=== PATIENT | female | born 1955 | race Caucasian/White ===

== ENCOUNTER 2019-06-21 08:53 | Inpatient (IN) | payer OTHER ==
[~2019-06-21] VITALS: Ht 162.6 cm; Wt 31.8 kg
[~2019-06-21 08:53] MED LIST: ALBU90OI61 INH; AZIT500 PO; BENZ100A PO; BREO ELLIPTA 11 EACH IH; BREO ELLIPTA 21 EACH IH; CEFTIN PO; ELIPTA; FLUSAL2505 INH; NAPR220 PO; PRED10 PO; SACC250C PO; STIOLTO RESPIMAT4 GM IH; Ventolin Soln3 ML INH
[2019-06-21] MEDS ORDERED: PRED20 PO (09:07)
[2019-06-21] MEDS ORDERED: MONDOXYNE NL100 MG PO (09:07)
[2019-06-21] MEDS ORDERED: STIOLTO RESPIMAT4 GM INH (09:07)
[2019-06-21 09:13] LABS: BASOPHILS ABSOLUTE AUTO 0.02 K/mm3 (0.00-0.23); BASOPHILS PERCENT AUTO 0 % (0-2); EOSINOPHILS ABSOLUTE AUTO 0.03 K/mm3 (0.00-0.68); EOSINOPHILS PERCENT AUTO 0 % (0-6); Hematocrit 43.8 % (33.0-51.0); Hemoglobin 13.6 g/dL (11.5-16.0); IMMATURE GRAN ABSOLUTE AUTO 0.04 K/mm3 (0.00-0.10); IMMATURE GRAN PERCENT AUTO 0 % (0-1); LYMPHOCYTES ABSOLUTE AUTO 1.01 K/mm3 (0.84-5.20); LYMPHOCYTES PERCENT AUTO 9 % (21-46); MONOCYTES ABSOLUTE AUTO 0.52 K/mm3 (0.16-1.47); MONOCYTES PERCENT AUTO 5 % (4-13); Mean Corpuscular HGB 31.8 pg (26.0-34.0); Mean Corpuscular HGB Conc 31.1 g/dL (31.5-36.5); Mean Corpuscular Volume 102 fL (80-100); Mean Platelet Volume 9.6 fL (9.1-12.4); NEUTROPHILS ABSOLUTE AUTO 9.23 K/mm3 (1.96-9.15); NEUTROPHILS PERCENT AUTO 85 % (41-73); Platelet Count 263 K/mm3 (150-400); RDW Coefficient Variation 14.5 % (11.7-14.2); RDW Standard Deviation 54.9 fL (35.1-46.3); Red Blood Cell Count 4.28 M/mm3 (3.80-5.20); White Blood Cell Count 10.85 K/mm3 (4.00-11.30)
[2019-06-21 09:31] LABS: Anion Gap 2 mmol/L (6-16); Blood Urea Nitrogen 20 mg/dL (8-24); Bun/Creatinine Ratio 35.1 (12.0-20.0); CO2, Blood 34 mmol/L (21-32); Calcium, Blood 8.5 mg/dL (8.5-10.1); Chloride, Blood 104 mmol/L (98-108); Creatinine, Blood 0.57 mg/dL (0.40-1.00); Glomerular Filtration Rate >60 (60-); Glucose, Blood 167 mg/dL (70-99); Potassium, Blood 3.8 mmol/L (3.5-5.5); Sodium, Blood 140 mmol/L (136-145)
[2019-06-21] MEDS ORDERED: Flovent 110 MCG12 GM INH (11:38)
--- NOTE | 2019-06-21 14:11 | NUR ---
PERMISSION TO PROVIDE CARE BHUPENDRA Randle, A STUDENT NURSE RECEIVED PERMISSION TO PROVIIDE CARE TO THIS PATIENT ON 06-22-2019 FROM THE CHARGE NURSE ON PCU
--- NOTE | 2019-06-21 18:41 | NUR ---
SUMMARY PT ADMITTED TO THE FLOOR FROM THE ER, SHE IS ON 2 L O2 VIA NC WHICH IS HER BASELINE, O2 SATS >95%. LUNGS ARE DIMINISHED THROUGH OUT W/WHEEZES,LABORED,TACHY. PRN & SCHEDULED BREATHING TREATMENTS HAVE BEEN ORDERED. PT IS A STAND BY ASSIST TO THE BSC. NS @75 ML/HR INFUSING. PT ENC TO CALL FOR ASSISTANCE PRIOR TO GETTING OOB. CALL LIGHT IN REACH, WCELIZABETH & REPORT TO CLYDE PENA.
[2019-06-22 04:20] LABS: BASOPHILS ABSOLUTE AUTO 0.01 K/mm3 (0.00-0.23); BASOPHILS PERCENT AUTO 0 % (0-2); EOSINOPHILS PERCENT AUTO 0 % (0-6); Hematocrit 39.3 % (33.0-51.0); Hemoglobin 12.5 g/dL (11.5-16.0); IMMATURE GRAN ABSOLUTE AUTO 0.02 K/mm3 (0.00-0.10); IMMATURE GRAN PERCENT AUTO 0 % (0-1); LYMPHOCYTES ABSOLUTE AUTO 0.47 K/mm3 (0.84-5.20); LYMPHOCYTES PERCENT AUTO 10 % (21-46); MONOCYTES PERCENT AUTO 4 % (4-13); Mean Corpuscular HGB 31.8 pg (26.0-34.0); Mean Corpuscular HGB Conc 31.8 g/dL (31.5-36.5); Mean Corpuscular Volume 100 fL (80-100); Mean Platelet Volume 9.7 fL (9.1-12.4); NEUTROPHILS ABSOLUTE AUTO 3.88 K/mm3 (1.96-9.15); NEUTROPHILS PERCENT AUTO 85 % (41-73); Platelet Count 240 K/mm3 (150-400); RDW Coefficient Variation 14.4 % (11.7-14.2); RDW Standard Deviation 53.2 fL (35.1-46.3); Red Blood Cell Count 3.93 M/mm3 (3.80-5.20); White Blood Cell Count 4.58 K/mm3 (4.00-11.30)
[2019-06-22 04:43] LABS: Anion Gap 4 mmol/L (6-16); Blood Urea Nitrogen 16 mg/dL (8-24); Bun/Creatinine Ratio 28.1 (12.0-20.0); CO2, Blood 31 mmol/L (21-32); Calcium, Blood 8.3 mg/dL (8.5-10.1); Chloride, Blood 107 mmol/L (98-108); Creatinine, Blood 0.57 mg/dL (0.40-1.00); Glomerular Filtration Rate >60 (60-); Glucose, Blood 119 mg/dL (70-99); Potassium, Blood 4.1 mmol/L (3.5-5.5); Sodium, Blood 142 mmol/L (136-145)
--- NOTE | 2019-06-22 06:38 | NUR ---
CIVIL DIVISION COMMANDER DEPUTY SHERIFF SUMMARY NO ACUTE CHANGES THIS SHIFT. PT AAOX4 AND PLEASANT. CALLS APPROPRIATELY FOR ASSISTANCE. CONTINUES ON 2L O2 VIA NC WHICH IS HOME DOSE. IV SOLUMEDROL Q6. PT REPORTS IMPROVEMENT IN BREATHING. STILL WHEEZY T/O. VSS, WILL CONTINUE TO MONITOR.
--- NOTE | 2019-06-22 07:21 | NUR ---
ASSUMED PATIENT CARE. PATIENT RECIEVING RESPIRATORY TREATMENT WITH RT AT BEDSIDE. PATIENT ENDORSES THAT THE RESPIRATORY TREATMENTS ARE HELPING. NO SIGNS OF ACUTE DISTRESS. WCTM.
--- NOTE | 2019-06-22 18:45 | NUR ---
NO ACUTE EVENTS THIS SHIFT. DECREASED WORK OF BREATHING THROUGH THIS SHIFT. DECREASED SEVERITY OF WHEEZES NOTED BY THIS RN COMPARED TO LUNG SOUNDS AT START OF SHIFT. PATIENT EXPRESSED FEELING LIKE HER "BREATHING IS GETTING BETTER." PATIENT MAINTAINED O2 SATURATION IN THE HIGH 90S THIS SHIFT ON 2-2.5 L BY NASAL CANNULA.
--- NOTE | 2019-06-22 19:31 | NUR ---
RELINQUISHED PATIENT CARE.
--- NOTE | 2019-06-22 21:00 | NUR ---
PATIENT RESTING IN BED, SOB WITH SLIGHT ACTIVITY. ON 2L/NC WITH BIOX 93-95% LUNG SOUNDS WHEEZES T/O, AND DIFFICULT TO TAKE DEEP BREATH. PATIENT UP TO BSC WITHOUT DIFFICULTY. PATIENT FLORENTIN PO WITHOUT DIFFICULTY.
[2019-06-23 04:03] LABS: Base Excess Venous 10.4 mmol/L; Bicarbonate Venous 32.7 mmol/L (24.0-30.0); PO2 Venous 126 mmHg (38-42); pH Blood Venous 7.45 (7.34-7.37)
[2019-06-23 04:10] LABS: BASOPHILS ABSOLUTE AUTO 0.01 K/mm3 (0.00-0.23); BASOPHILS PERCENT AUTO 0 % (0-2); EOSINOPHILS PERCENT AUTO 0 % (0-6); Hematocrit 38.2 % (33.0-51.0); Hemoglobin 12.1 g/dL (11.5-16.0); IMMATURE GRAN ABSOLUTE AUTO 0.02 K/mm3 (0.00-0.10); IMMATURE GRAN PERCENT AUTO 0 % (0-1); LYMPHOCYTES ABSOLUTE AUTO 0.55 K/mm3 (0.84-5.20); LYMPHOCYTES PERCENT AUTO 8 % (21-46); MONOCYTES ABSOLUTE AUTO 0.28 K/mm3 (0.16-1.47); MONOCYTES PERCENT AUTO 4 % (4-13); Mean Corpuscular HGB 31.6 pg (26.0-34.0); Mean Corpuscular HGB Conc 31.7 g/dL (31.5-36.5); Mean Corpuscular Volume 100 fL (80-100); Mean Platelet Volume 9.5 fL (9.1-12.4); NEUTROPHILS ABSOLUTE AUTO 6.45 K/mm3 (1.96-9.15); NEUTROPHILS PERCENT AUTO 88 % (41-73); Platelet Count 233 K/mm3 (150-400); RDW Coefficient Variation 14.2 % (11.7-14.2); RDW Standard Deviation 52.4 fL (35.1-46.3); Red Blood Cell Count 3.83 M/mm3 (3.80-5.20); White Blood Cell Count 7.31 K/mm3 (4.00-11.30)
[2019-06-23 04:37] LABS: Anion Gap 1 mmol/L (6-16); Blood Urea Nitrogen 16 mg/dL (8-24); Bun/Creatinine Ratio 30.4 (12.0-20.0); CO2, Blood 34 mmol/L (21-32); Calcium, Blood 8.4 mg/dL (8.5-10.1); Chloride, Blood 106 mmol/L (98-108); Creatinine, Blood 0.53 mg/dL (0.40-1.00); Glomerular Filtration Rate >60 (60-); Glucose, Blood 121 mg/dL (70-99); Potassium, Blood 4.2 mmol/L (3.5-5.5); Sodium, Blood 141 mmol/L (136-145)
--- NOTE | 2019-06-23 06:44 | NUR ---
SUMMARY PATIENT SLEEPING OFF AND ON T/O NIGHT. LUNG SOUNDS REMAIN DECREASED WITH WHEEZES T/O. SOB WITH ACTIVITY, BUT IS ABLE TO TRANSFER SELF TO BSC WITHOUT DIFFICULTY. PATIENT VERBALIZED THAT SHE IS FEELING BETTER THIS MORNING AND IS WANTING TO TRY TO TAKE A SHOWER TODAY.
--- NOTE | 2019-06-23 07:22 | NUR ---
ASSUMED PATIENT CARE. PATIENT RESTING COMFORTABLY IN BED, COMVERSING WITH NURSING STAFF. NO SIGNS OF ACUTE RESPIRATORY DISTRESS, WCTM.
--- NOTE | 2019-06-23 19:43 | NUR ---
TRANSFER NOTE HANDOFF RECEIVED FROM PCU NURSE MAURIZIO. PT TRANSFERED TO MED FLOOR VIA WHEELCHAIR. PERSONAL POSSESSIONS BROUGHT WITH PT. PT ORIENTED TO UNIT. CALL BUTTON WITHIN REACH.
--- NOTE | 2019-06-24 05:31 | NUR ---
SHIFT SUMMARY ADMITTED FOR RESPIRATORY FAILURE. FOUND TO HAVE COPD EXACERBATION. DNR CODE. ORAL PREDNISONE AND ZITHROMAX IS IN EMAR. RT TX'S ARE SCHEDULED. I DID CALL NIGHT HOSPITALIST FOR JOS[facility] MANUEL KISER TID PRN THIS SHIFT DUE TO HER SEVERE COUGHING SPELLS. SHE IS ON A REGULAR DIET, A&O X4, AND ON 2 LPM O2 WHICH IS HER BASELINE AT HOME. SHE LIVES WITH HER , AND SHE IS A CURRENT SMOKER. STANDBY ASSIST TO BATHROOM DUE TO SEVERE DYSPNEA. HX: COPD, MALNUTRITION, GERD. QUANTIFERON GOLD TEST RESULTS ARE PENDING (RE:LATENT TB).
--- NOTE | 2019-06-24 19:15 | NUR ---
RECEIVED BEDSIDE REPORT FROM BECKY GRIFFIN. PT SITTING UP IN BED. RESP SHALLOW ON 2L VIA NC, 2L IS PT'S BASELINE AT HOME. NOTED SOB AT REST. PT STATES SHE'S MUCH BETTER THAN WHEN SHE CAME IN AND IS HOPING TO BE DISCHARGED IN THE MORNING. WILL MONITOR AND PROVIDE CARE T/O SHIFT. CALL LT IN REACH.
--- NOTE | 2019-06-24 21:28 | NUR ---
PT RESTING QUIETLY AT THIS TIME. CALL LT IN REACH.
--- NOTE | 2019-06-24 22:10 | NUR ---
PT DENIES ANY NEEDS. CALL LT IN REACH.
--- NOTE | 2019-06-25 04:14 | NUR ---
SHIFT SUMMMARY: PT CONTINUES TO BE SOB, HOWEVER, IS AT BASELINE FOR OXYGEN NEEDS AT 2L VIA NC. NO COMPLAINTS OF PAIN, OR NAUSEA. REPORTED NO SPUTUM DURING SHIFT. COUGHED VERY LITTLE DURING SHIFT. NO ACUTE CHANGES. RESTED COMFORTABLY. WILL CONTINUE TO MONITOR AND PROVIDE CARE UNTIL SHIFT REPORT.
--- NOTE | 2019-06-25 12:00 | NUR ---
SHIFT SUMMARY PT AWAKE DURING SHIFT REPORT, BECOMING A LITTLE SOB TRYING TO TALK AND SIT UP. PER SHIFT REPORT, PT FEELS THAT SHE IS AT HER BASELINE. PT CURRENTLY ON 2L NC AND HAD JUST GOTTEN O2 AT HOME 2 DAYS BEFORE BEING ADMITTED TO HOSPITAL. PT ALSO REPORTED THAT SHE WAS STILL SMOKING UNTIL FRIDAY. PT ENCOURAGED TO QUIT. DR HALL IN TO SEE PT; OFFERED PT NICOTINE PATCH OR SOMETHING ELSE TO HELP HER QUIT. PT DECLINED AND REPORTED THAT SHE DIDN'T NEED ANYTHING. PT HAD WANTED TO GO HOME. HOWEVER, AFTER GETTING UP TO BTH[facility], PT BECAME VERY SOB WITH HIGH ANXIETY. DR HALL ENCOURAGED PT TO STAY ONE MORE DAY WHILE SWITCHING TO PO STEROIDS. PT REQUESTED SOMETHING TO HELP HER "TAKE A NAP", SHE HAS NOT BEEN ABLE TO SLEEP WHILE IN HOSPITAL, WHICH "HAS INCREASED MY ANXIETY". ATIVAN 0.5 MG X1 ORDERED AND GIVEN. PT THEN AGREEABLE TO WHAT DR HALL THOUGHT WAS BEST. PT HAS NOT BEEN EATING MUCH AT ALL; PT ENCOURAGED TO IMPROVE NUTRITION. IDEAS DISCUSSED ON HOW TO BEST DO THAT. PT RESTING QUIETLY AT THIS TIME. CALL LT IN REACH. ABLE TO MAKE NEEDS KNOWN.
--- NOTE | 2019-06-25 19:32 | NUR ---
PT WAS ABLE TO REST WELL AFTER ATIVAN GIVEN EARLIER TODAY. PT FELT BETTER WHEN WAKING, BUT LATER BECAME SOB AND NEEDED RT TX'S. RT NOTIFIED. PT SITTING ON SIDE OF BED BECOMING MORE ANXIOUS WAITING FOR RT. BY THE TIME RT TX'S WERE COMPLETE, PT'S ANXIETY CONTINUED TO INCREASE STATING TO RT THAT SHE WASN'T GOING TO MAKE IT. THIS RN WAS NOTIFIED BY RT OF PT'S CONTINUING STATUS. DR HALL NOTIFIED OF PT'S DECLINE. NEW ORDERS RECEIVED. PT LUNGS T/O WITH INCREASED WHEEZES AND WET. ATIVAN X1 GIVEN AGAIN. ORDERS TO TX PT TO PCU ON BIPAP IF NEEDED. PT APPEARS TO HAVE CALMED DOWN SOME AT THIS TIME. PT REPORTED THAT SHE DOES THIS SAME THING AT HOME AND WAITS TOO LONG TO CALL 911, WHEN SHE CAN'T BREATHE. REPORT GIVEN TO ONCOMING RN.
--- NOTE | 2019-06-26 06:02 | NUR ---
Rn summary: Patient is alert and oriented, very soft spoken due to respiratory distress. Pt was on 5 liters at beginning of shift, down to 4 liters, sats 97% at rest. Pt has been able to sleep most of shift. Did receive ativan at end of day shift. Pt has been calm and free of distress. Breath sounds with crackles mid to upper lobes, diminished in bases with fine expiratory wheezes, course wheezes anteriorly. Pt was awake about 0330, she was dangling at bedside eating a snack. SOB. Pt had walked into BR instead of using BSC to conserve respiratory reserves. Bed alarm on for safety. Call light in reach.
[2019-06-26 07:10] LABS: QUANTIFERON MITOGEN VALUE 6.28 IU/mL (.); QUANTIFERON TB1 AG VALUE 0.22 IU/mL (.); QUANTIFERON TB2 AG VALUE 0.09 IU/mL (.); QUANTIFERON-TB GOLD PLUS Negative (Negative)
--- NOTE | 2019-06-26 18:38 | NUR ---
NO ACUTE CHANGES NOTED. PATIENT IS DOING WELL ON 1 LITER O2 VIA NASAL CANULA. NO COMPLAINTS OF SHORTNESS OF BREATH OR ANXIETY NOTED. NO CURRENT COMPLAINTS OF PAIN OR DISCOMFORT NOTED. WILL CONTINUE TO MONITOR FOR CHANGES.
--- NOTE | 2019-06-27 04:52 | NUR ---
SHIFT SUMMARY ASSUMED CARE OF PT AT 1900. PT IS A/O X4, DENIES N/T IN EXTRMIEITES AT THIS TIME. HEART SOUNDS REGULAR, DENIES CP AT THIS TIME. LUNG SOUNDS CRACKLES IN THE APEXS AND WHEEZING T/O. PT STATES THAT SHE THOUGHT SHE WAS GETTING TO MUCH O2 AND WANTED TO TAKE OFF THE NC BUT UPON ASSESSMENT PT SATURATION WAS IN THE 80'S, PT PUT THE NC BACK IN HER NOSE AND HE SATURATION WENT TO 91% ON 2L, RT CONSULTED WITH CARE. NO ACUTE CHANGES NOTED T/O THE NIGHT, PT SLEPT T/O THE NIGHT WITHOUT ANY COMPLAINTS. CALL LIGHT IN REACH, BED IN LOWEST POSTION, WILL CONTINUE TO MONITOR UNTIL DAYSHIFT NURSE ARRIVES.
[2019-06-27] MEDS ORDERED: ALBU2.5V5 INH (10:00)
--- NOTE | 2019-06-27 10:45 | NUR ---
PT CALLED AND REPORTED FEELING SHORT OF BREATH AND DIFFICULTY WITH BREATHING. LS DIMINISHED WITH WHEEZES AND CRACKLES NOTED. RT CALLED FOR BREATHING TX. PT HAD PREVIOUSLY WITH SATS AT 87% ON 2L, 02 INCREASED TO 3L. PT CURRENTLY WITH SATS BACK AT 87% ON 3L, INCREASED TO 90% ON 3L WITH BREATHING TX. DR HALL IN TO SEE PT AND REPORTS WILL RETURN. PT HAVING DIFFICULTY SPEAKING IN SENTENCES AND ONLY ABLE TO SAY 2-3 WORDS AT A TIME. WILL CONT TO MONITOR AT THIS TIME. PT DOES REPORT BREATHING TX HELPED.
[2019-06-27 11:41] LABS: PCO2 Arterial 78 mmHg (35-45); PO2 Arterial 61.8 mmHg (80-100); pH Blood Arterial 7.34 (7.35-7.45)
--- NOTE | 2019-06-27 11:48 | NUR ---
FAMILY AT BEDSIDE AND ARE VERY CONCERNED ABOUT PT AND REPORT SHE LOOKS WORSE THEN SHE DID WHEN SHE CAME IN. DR HALL IN TO SEE PT AND SPOKE WITH PT AND FAMILY. ABG ORDERED AND CHEST XRAY. PALLIATIVE CARE AND NET PROGRAMMER CONSULT ALSO PLACED, PT WITH NO APPETITE AND VERY POOR ORAL INTAKE, PT REPORTS SHE DOES NOT EAT HOME EITHER. PT DID AGREE TO TAKE AN ENSURE.
--- NOTE | 2019-06-27 11:51 | NUR ---
ABG RESULTS CALLED TO DR HALL. PER DR HALL GO AHEAD AND GIVE ORAL ATIVAN 0.5MG AND HE WILL BE UP TO SEE PT AND FAMILY SHORTLY.
--- NOTE | 2019-06-27 14:46 | NUR ---
PT CONT TO STRUGGLE TO BREATHE, PT INITIALLY TOOK BIPAP OFF APROX 1 HR AFTER PLACING AND REPORTS SHE COULD NOT TOLERATE IT. FAMILY AND DR HALL AT BEDSIDE AND ENCOURAGED PT TO TRY AGAIN. PT PLACED BACK ON BIPAP REQUIRING A 6L BLEED TO GET SATS TO 90%. PT DROWSY, WILL OPEN EYES TO VERBAK STIMULI BUT DOES NOT VERBALLY RESPOND. RESP TACHY WELL HR IN THE 110'S. REPORT CALLED TO PCU, AWAITING TRANSFER AT THIS TIME. FAMILY AT BEDSIDE.
--- NOTE | 2019-06-27 15:28 | NUR ---
PT TRANSFERED TO PCU 2. FAMILY AT BEDSIDE.
--- NOTE | 2019-06-27 15:45 | NUR ---
ASSUMED PATIENT CARE. PATIENT RESTING IN BED, EQUAL BILATERAL CHEST RISE WITH BREATH. PATIENT HAS BIPAP ON. FAMILY AT BEDSIDE, PALLIATIVE CARE PRESENT AT BEDSIDE. WCTM.
--- NOTE | 2019-06-27 16:23 | NUR ---
Pt resting in bed upon arrival. Pt denies pain at this time. Pt appears dyspneic as evidenced by respiratory rate and work of breathing. Engaged in therapeutic discussion regarding goals of care including hospice and comfort care as an option. Pt and family do not indicate what they are considering at this time. Pt is focussed on her axiety at this time. Educated Pt on relaxation and imagery technique to help manage anxiety. Pt will be able to receive Ativan in approximately 1 hour. Pt is agreeable with waiting. Spoke with bedside RN's Marj. Discussed case and concerns. Palliative Care will remain available.
--- NOTE | 2019-06-27 19:15 | NUR ---
RELINQUISHED PATIENT CARE.
--- NOTE | 2019-06-27 19:29 | NUR ---
PATIENT ARRIVED TO THIS UNIT THIS EVENING. PATIENT IS IN END STAGE COPD, ON BIPAP. FAMILY WAS AT BEDSIDE THROUGHOUT THIS PART OF SHIFT, PALLIATIVE CARE FOLLOWING. CONVERSATIONS TO FOLLOW REGARDING POSSIBLE COMFORT CARE STATUS. ATIVAN WAS IN USE THIS MORNING ON MED FLOOR, PATIENT HAS NOT NEEDED ANXIETY MANAGEMENT SINCE ARRIVING TO PCU.
--- NOTE | 2019-06-27 19:30 | NUR ---
Assumed Care Pt presents asleep, wearing BIPAP, family at bedside tearful. Family expressing to this RN about "a rough day" stating "they say she's going to ." This RN offered therapeutic listening and communication. This RN expressed deep sympathy for the difficult time the whole family is going through. This RN offered hugs and words of encouragement. Family responded positively to communication offered. This RN also educated family on COPD. The pt's VSS, opens eyes to verbal stimulous but not engaging in conversation. See shift assessment for detailed systems assessment. Will continue to montior and offer support for pt and family.
--- NOTE | 2019-06-27 20:20 | NUR ---
Update RT at bedside for assessment. Pt with increased alertness as compared to previous interaction. Bipap removed from pt and NC placed, pt tolerating 7L NC. Engaging in converstaion with family. Alert and oriented to name, , place, following directions, family. Pt tearful stating "I don't want to ". This RN at bedside with family and pt offering support and care. Oral care performed and pt's hair brushed. Will continue to monitor.
--- NOTE | 2019-06-27 22:31 | NUR ---
Update Pt took all PO medications whole with water. No coughing or difficulty swallowing noted. Pt laughing and engaging with family, though appears frail and weak. Family left bedside around 2200 and BIPAP placed on Pt and sleep encouraged. Jelly placed to pt's nose for skin protection. Family names and numbers placed on whiteboard in room and pt's daughter in law to stay the night. Recliner placed in room and set up for pt's daughter. Will continue to monitor.
--- NOTE | 2019-06-28 02:23 | NUR ---
NEAR FALL EVENT Pulse oximetry alarm sounding, this RN to room to assess pt and found pt walking to bathroom without assistance. Pt's daughter in law in room at this time. Pt lost balance and this RN assisted pt to find balance again. This was a near fall event. Pt walked back to bed by this RN. Pt and Pt's daughter in law educated strongly on need to call for assistance with ambulation. Pt verbalized understanding. Call light placed in bed, bed alarm on. Will continue to closely monitor. This pt is high fall risk.
--- NOTE | 2019-06-28 05:26 | NUR ---
Shift Summary VSS throughout shift, mentationed improved since begining of shift. Pt alert and following commands, conversing with staff and expressing needs and concerns/asking questions. Pt did have near fall this shift - see previous note for account of event and interventions implemented. Pt has since been compliant. BIPAP has been worn by pt for approx 9 hours this shift with two breaks. During breaks, pt tolerating NC. NC has been able to be titrated from 7LPM to 3 LPM with o2 saturations at 93-95%. Pt with RR remaining in 20-30's, appears labored. Pt up to BSC two times. BM this shift. Pt tearful throughout cares this shift, expressing concern related to dying. She states "I want to leave today". Pt's daughter in law at bedside reassuring pt of need for care at hospital. Pt remains tearful. Overall pt condition appears to be improving, mentation improving, oxygenation improving. Plan for palliative to continue to speak with pt and family regarding desired goals for this hosptial admission. Will continue to monitor until day Rn assumes care.
--- NOTE | 2019-06-28 07:29 | NUR ---
ASSUMED PATIENT CARE. PATIENT RESTING COMFORTABLY IN BED, NASAL CANNUAL ON AT 2L. PATIENT CONVERSING COMFORTABLY WITH NURSING STAFF. EQUAL BILATERAL CHEST RISE WITH BREATH, NO SIGNS OF ACUTE DISTRESS. WCTM.
--- NOTE | 2019-06-28 10:36 | NUR ---
Pt resting in bed upon arrival and just finished a breathing treatment. Pt denies pain at this time. Pt appears dyspneic as evidenced by work of breathing when speaking. Engaged in therapeutic listening as Pt discusses her condition and prognosis. She asks "Are they going to put me on hospice"? Educated Pt that hospice is appropriate for her but ultimately it needs to line up with her goals with her making the decision. Educated Pt if she chooses hospice, it does not mean that she will pass away imediately and that it becomes her journey. Suggested to Pt having a conversation with family and allow concerns and fears to be expressed. No other concerns reported at this time. Continued conversation with Pt's daughter in law outside of Pt's room. Answered questions and concerns. Palliative Care will remain available.
--- NOTE | 2019-06-28 11:35 | NUR ---
NOTIFIED DR. GIRON'S OFFICE OF CONSULTATION.
--- NOTE | 2019-06-28 18:41 | NUR ---
PATIENT WAS ON NASAL CANNULA 2L MAJORITY OF SHIFT, THIS AFTERNOON HAD INCREASED WORK OF BREATHING AFTER ACTIVITY AND REQUIRED APPLICATION OF BIPAP. PLAN IS TO CONTINUE ON IV STEROIDS AND RT BREATHING TX. PATIENT HAS INCREASED ANXIETY WITH BIPAP APPLICATION, ATIVAN GIVEN AND PROVED EFFECTIVE FOR ANXIETY MANAGEMENT WELL APPLICATION OF COOL WASHCLOTHS AND DISTRACTION. PATIENT'S APPETITE REMAINS MINIMAL, ENCOURAGED PO INTAKE WITH REQUEST FOR EGGS IN THE MORNING. CLIENT DELIVERY MANAGER FOLLOWING. PULM TO CONSULT. PATIENT'S BP HAS TRENDED UP THIS SHIFT, FROM 135/79 TO 150/89. MONITORED, PATIENT DENIED CHEST PAIN, DENIED BACK PAIN.
[2019-06-29 04:18] LABS: BASOPHILS ABSOLUTE AUTO 0.01 K/mm3 (0.00-0.23); BASOPHILS PERCENT AUTO 0 % (0-2); EOSINOPHILS PERCENT AUTO 0 % (0-6); Hematocrit 43.5 % (33.0-51.0); Hemoglobin 13.4 g/dL (11.5-16.0); IMMATURE GRAN ABSOLUTE AUTO 0.03 K/mm3 (0.00-0.10); IMMATURE GRAN PERCENT AUTO 0 % (0-1); LYMPHOCYTES ABSOLUTE AUTO 0.48 K/mm3 (0.84-5.20); LYMPHOCYTES PERCENT AUTO 5 % (21-46); MONOCYTES ABSOLUTE AUTO 0.37 K/mm3 (0.16-1.47); MONOCYTES PERCENT AUTO 4 % (4-13); Mean Corpuscular HGB 30.9 pg (26.0-34.0); Mean Corpuscular HGB Conc 30.8 g/dL (31.5-36.5); Mean Corpuscular Volume 101 fL (80-100); Mean Platelet Volume 9.5 fL (9.1-12.4); NEUTROPHILS ABSOLUTE AUTO 9.31 K/mm3 (1.96-9.15); NEUTROPHILS PERCENT AUTO 91 % (41-73); Platelet Count 248 K/mm3 (150-400); RDW Coefficient Variation 13.2 % (11.7-14.2); RDW Standard Deviation 49.6 fL (35.1-46.3); Red Blood Cell Count 4.33 M/mm3 (3.80-5.20)
[2019-06-29 04:52] LABS: PO2 Arterial 82.9 mmHg (80-100); pH Blood Arterial 7.34 (7.35-7.45)
--- NOTE | 2019-06-29 05:18 | NUR ---
06/29/19 0520 PT SLEEPING AND WAS PUT BACK ON BIPAP PER RESP.CARE AFTER ABG REPORT SHOWED CO2= 79 ON O2 N/C AT 3LPM. VITALS STABLE AND NO C/O S/S OR PROBLEMS FROM PATIENT. FAMILY AT BEDSIDE ALL SHIFT AND ASSIST HER WITH CARE. SOB NOTED EARLIER IN SHIFT WITH ANY ACTIVITY INCLUDING TALKING.
--- NOTE | 2019-06-29 07:22 | NUR ---
06/29/19 0618 PULSE OXIMETER ALARMING AND PT HAD TAKEN OFF BIPAP. O2 SATS IN HIGH 50'S TO 60'S. RESP.CARE AND 2 RN'S IN ROOM PRIMARY RN WAS IN ANOTHER PT'S ROOM DOWN THE EWING. RT WAS ABLE TO BRING O2 SATS UP. SEE RT NOTES. PT NOW AT 96% O2 WITH BIPAP BLEEDING AT 9LPM. PT ASSISTED UP TO BSC FOR VOIDING AND ASSISTED BACK TO BED WITHOUT PROBLEMS. FAMILY AT BEDSIDE.
--- NOTE | 2019-06-29 10:03 | NUR ---
Supportive therapeutic visit this AM. Pt resting in bed and denies pain at this time. Pt appears dyspneic as evidenced of work of breathing, accesory muscle use, and speaking in short sentences. Listened as Pt reports very little appetite. Offered therapeutic listening. No family at bedside currently. Instructed Pt this RN will make another visit when family is present. Spoke with bedside RN Mary and discussed case. Palliative Care will remain available.
--- NOTE | 2019-06-29 12:39 | NUR ---
Pt visit this afternoon. Pt reports she has chosen to D/C home with hospice. Confirmed Pt's understanding of hospice philosophy with Pt's understanding appropriate. Family is agreeable. Indra Zambrano will present hospice agencies available to choose. Family reports they will discuss further on if comfort measures should be started during Pt's hospital stay. No other concerns reported at this time. Palliative Care will remain available.
--- NOTE | 2019-06-29 17:47 | NUR ---
SHIFT SUMMARY PT ALERT AND ORIENTED, BUT LETHARGIC. O2 SATS HAVE REMAINED ABOVE 90% WITH BIPAP WITH 5-9L BLEED IN DEPENDING ON NEEDS. PT DESATURATES WIT MINIMAL ACTIVITY AND CAN TOLERATE BREAKS FROM BIPAP ON 4L NC. PT DENIES ANY PAIN. BP STABLE. HR NSR. PT REQUESTED INFORMATION ON HOSPICE TODAY. DISCHARGE PLANNING HAS ARRANGED DC HOME ON HOSPICE TOMORROW. FAMILY AT BEDSIDE. BED ALARM ON FOR SAFETY.
--- NOTE | 2019-06-29 18:24 | NUR ---
Initial spiritual care note: Met with Estelle alone at bedside. She appears quite frail. She admits she is tired of suffering and knows she is nearing end-of-life. She is primarily concerned about burdening her son, as he is suffering some physical ailments. Her DILTiago is a great support to pt. Estelle's battles numerous addictions and has been the cause of great turmoil at home. I gently explained hospice services. Estelle very much wants to be home. I provided memorial counselor and assurance of care. MICHELLE arrived and joined the conversation. Tiago agrees that pt has suffered "long enough" and promises to "take care of things at home." There is a deep acosta between these two women. I affirmed obvious love, provided anticipatory berevament memorial counselor to good effect. INformed RN of pt/family wishes. I will remain available.
--- NOTE | 2019-06-30 05:48 | NUR ---
SHIFT SUMMARY PT A&O X4, PLEASANT, CALM & COOPERATIVE. PT'S [id number] AT BEDSIDE T/O SHIFT. PT DENIES PAIN, BUT REPORTS DISCOMFORT W/ BREATHING. LUNG SOUNDS W/ EXPIRATORY WHEEZE NOTED. SPO2 > 90% ON 2-15L HI-BROCK NC OR BIPAP 15/8 W/ 15L BLEED IN THIS SHIFT. PT O2 NEEDS FLUCTUATING GREATLY T/O SHIFT WHILE AT REST AND W/ ACTIVITY. PT LABORING TO BREATHE W/ PT & PT [id number] EXPRESSING READINESS TO BEGIN COMFORT CARE MEASURES TONIGHT, BUT ALSO WANTING TO CONTINUE CURRENT MEDICATION TX. CALL TO BOAT LABORER ESAU W/ UPDATE ON PT'S LABOROUS BREATHING AND REQUEST TOWARDS COMFORT CARE. BOAT LABORER ESAU W/ NEW ORDERS FOR PRN MORPHINE, SEE EMAR. PT REQUESTING 1 MG IV MORPHINE, ADMINISTERED PER PT REQUEST/EMAR X2 THIS SHIFT. PT REPORTING IMPROVEMENT W/ BREATHING AFTER MORPHINE ADMINISTRATION. PT NOT TOLERATING BIPAP THIS SHIFT DESPITE MULTIPLE ATTEMPTS TO WEAR. PT SHARING PLANS FOR GOING HOME W/ HOSPICE TODAY, STATING "I JUST WANT TO BE COMFORTABLE, AND I JUST WANT TO MAKE IT HOME TO SEE MY FAMILY." PT DISCUSSING END OF LIFE FINANCIAL PLANS W/ [id number] AT BEDSIDE. [id number] TEARFUL, OFFERING SUPPORT TO PT. WILL CONTINUE TO MONITOR AND PROVIDE CARE UNTIL REPORT OFF TO DAY SHIFT RN.
--- NOTE | 2019-06-30 13:30 | NUR ---
PT DISCHARGED WITH HOME HOSPICE. [facility] CAME TO BEDSIDE AND PROVIDED INFORMATION FOR HOME CARE. BELONGINGS GATHERED AND TRANSPORTED WITH PT/FAMILY. PT WAS TRANSPORTED HOME BY AMBULANCE. PT CONTINUE ON 2L O2 VIA NC.
[2019-07-02 14:09] LABS: ALPHA-1-ANTITRYPSIN, SERUM 116 mg/dL (101-187); PHENOTYPE (PI) MS (.)
== END 2019-06-30 13:47 | disposition hospice, home (50) | DRG 189 ==
LOC: ER 08:53 → PCU 11:08 → MEDS 11:08 → PCU 15:59 → MEDS 06-23 19:04 → PCU 06-27 15:18
PROVIDERS: Emergency Medicine; Hospitalist; Internal Medicine; Internal Medicine Critical Care Medicine; ADMIT Internal Medicine
DX: J96.21 Acute and chronic respiratory failure with hypoxia (principal); Z68.1 Body mass index [BMI] 19.9 or less, adult; R64 Cachexia; E44.1 Mild protein-calorie malnutrition; F17.210 Nicotine dependence, cigarettes, uncomplicated; J43.9 Emphysema, unspecified; K21.9 Gastro-esophageal reflux disease without esophagitis; F41.0 Panic disorder [episodic paroxysmal anxiety]; J96.22 Acute and chronic respiratory failure with hypercapnia; Z66 Do not resuscitate
CPT/HCPCS: 36415; 36416; 36600; 71045; 71046; 80048; 82803; 83880; 85025; 86480; 93005; 93010; 94640; 94644; 94660; 94760; 94762; 96372-59; 96374; 96376; 99285-25; J1650; J2270; J2920; J2930; J7030; J7120; J7512